=== PATIENT | male | born 1995 | race Two or more races ===

== ENCOUNTER 2017-03-27 14:11 | Emergency (ER) | payer MEDICAID ==
[~2017-03-27] VITALS: Ht 172.7 cm; Wt 93.6 kg
[2017-03-27 14:26] VITALS: BP 141/78
== END 2017-03-27 15:50 | disposition home or self-care (01) ==
LOC: ED 14:11
DX: J01.90 Acute sinusitis, unspecified (principal); J30.2 Other seasonal allergic rhinitis

== ENCOUNTER 2017-11-11 01:52 | Inpatient (IN) | payer MEDICAID ==
[~2017-11-11] VITALS: Ht 172.7 cm; Wt 92.5 kg
[2017-11-11 02:07] VITALS: Ht 172.7 cm; Wt 92.5 kg
[2017-11-11 03:03] LABS: CALCIUM 9.2 mg/dL (8.5-10.1); CARBON DIOXIDE 25.6 mmol/L (21-32); CHLORIDE SERUM 101 mmol/L (98-107); CREATININE SERUM 1.5 mg/dL (0.7-1.3); GFR1 > 60 mL/min; GLUCOSE SERUM 124 mg/dL (74-106); POTASSIUM SERUM 3.5 mmol/L (3.5-5.1); SODIUM SERUM 138 mmol/L (136-145)
[2017-11-11 03:07] LABS: ALBUMIN 4.2 g/dL (3.4-5.0); ALKALINE PHOSPHATASE 60 U/L (46-116); ALT/SGPT 24 U/L (16-63); AST/SGOT 17 U/L (15-37); BILIRUBIN TOTAL 0.58 mg/dL (0.20-1.00); LIPASE 117 IU/L (73-393); TOTAL PROTEIN, SERUM 7.9 g/dL (6.4-8.2)
[2017-11-11 03:12] LABS: BASOPHIL % 0.1 % (0-2); PLATELET COUNT 160 x10^3mcL (130-400); RED CELL DISTRIBUTION WIDTH 12.9 % (11.5-14.5)
[2017-11-11 04:59] LABS: UA SPECIFIC GRAVITY 1.025 (1.005-1.035); microscopic required? YES; urine erythrocyte 3+ (NEGATIVE)
[2017-11-11 05:02] LABS: AMPHETAMINE QUAL UR NONE DETECTED (NEG <=1000)
[2017-11-11 06:01] LABS: PHOSPHOROUS 2.8 mg/dL (2.5-4.9)
[2017-11-11 06:08] LABS: CHOLESTEROL/HDL RATIO 3.8
[2017-11-11 06:14] LABS: FREE T4 1.09 ng/dL (0.76-1.46); FREE THYROXINE INDEX 2.8 ug/dL (1.4-4.5); T4(THYROXINE) 7.9 ug/dL (4.7-13.3)
[2017-11-11 13:33] LABS: T3 TOTAL 1.17 ng/mL
[2017-11-11 14:03] VITALS: BP 130/83
[2017-11-11 14:38] VITALS: BP 131/85
== END 2017-11-11 17:16 | disposition left against medical advice (07) | DRG 465 ==
LOC: ED 01:52 → DU 04:30
PROVIDERS: Emergency Medicine; Family Medicine
DX: N13.2 Hydronephrosis with renal and ureteral calculous obstruction (principal); N17.0 Acute kidney failure with tubular necrosis; R31.9 Hematuria, unspecified; E78.2 Mixed hyperlipidemia; E66.9 Obesity, unspecified; Z68.32 Body mass index [BMI] 32.0-32.9, adult
CPT/HCPCS: 83880; 84439; J1170; J1885; J2270; J2405

== ENCOUNTER 2018-04-01 08:45 | Emergency (ER) | payer MEDICAID ==
[~2018-04-01] VITALS: Ht 170.2 cm; Wt 95.4 kg
[2018-04-01 08:51] VITALS: Ht 170.2 cm; Wt 95.4 kg
[2018-04-01 09:52] VITALS: BP 128/77
== END 2018-04-01 09:52 | disposition home or self-care (01) ==
LOC: ED 08:45
DX: J02.9 Acute pharyngitis, unspecified (principal)

== ENCOUNTER 2018-11-03 11:49 | Emergency (ER) | payer MEDICAID ==
[~2018-11-03] VITALS: Ht 170.2 cm; Wt 99.8 kg
[2018-11-03 11:57] VITALS: BP 104/61; Ht 170.2 cm; Wt 99.8 kg
== END 2018-11-03 16:35 | disposition home or self-care (01) ==
LOC: ED 11:49
DX: J02.9 Acute pharyngitis, unspecified (principal); J98.01 Acute bronchospasm
CPT/HCPCS: J7613

== ENCOUNTER 2019-07-05 12:35 | Emergency (ER) | payer MEDICAID ==
[~2019-07-05] VITALS: Ht 170.2 cm; Wt 100.7 kg
[2019-07-05 12:42] VITALS: Ht 170.2 cm; Wt 100.7 kg
[2019-07-05 13:43] LABS: CALCIUM 8.5 mg/dL (8.5-10.1); CARBON DIOXIDE 28.3 mmol/L (21-32); CHLORIDE SERUM 103 mmol/L (98-107); CREATININE SERUM 0.9 mg/dL (0.7-1.3); GFR1 > 60 mL/min; GLUCOSE SERUM 99 mg/dL (74-106); POTASSIUM SERUM 3.9 mmol/L (3.5-5.1); SODIUM SERUM 140 mmol/L (136-145)
[2019-07-05 13:55] LABS: BASOPHIL % 0.6 % (0-2); PLATELET COUNT 177 x10^3mcL (130-400); RED CELL DISTRIBUTION WIDTH 13.7 % (11.5-14.5)
[2019-07-05 13:59] LABS: ALBUMIN 3.8 g/dL (3.4-5.0); ALKALINE PHOSPHATASE 65 U/L (46-116); ALT/SGPT 30 U/L (16-63); AST/SGOT 20 U/L (15-37); BILIRUBIN TOTAL 0.6 mg/dL (0.20-1.00); TOTAL PROTEIN, SERUM 7.9 g/dL (6.4-8.2)
[2019-07-05 15:32] VITALS: BP 127/71
== END 2019-07-05 15:37 | disposition home or self-care (01) ==
LOC: ED 12:35
DX: R11.2 Nausea with vomiting, unspecified (principal); R10.84 Generalized abdominal pain; R19.7 Diarrhea, unspecified; R51 Headache; R68.83 Chills (without fever); Z87.442 Personal history of urinary calculi
CPT/HCPCS: 36415; Q0162